=== PATIENT | male | born 1980 | race African-American/Black ===

== ENCOUNTER 2017-08-30 12:59 | Emergency (ER) | payer SELFPAY ==
[2017-08-30 13:02] VITALS: BMI 29.2
--- NOTE | 2017-08-30 13:23 | DR.EXTPAIN ---
HPI - Time seen Time seen: 17:35 - PCP Primary Care Physician: ABENA - HPI Comment HPI Comment: Patient reports that he has frequent dislocation of the shoulder. - Complaint/Symptoms Chief Complaint Doctor Comments: Patient with a history of dislocation of his shoulder, today complains of right shoulder pain and decreased abduction. Pain to movement. Chief Complaint:: PT. STATES HE FEELS LIKE HIS RIGHT SHOULDER IS OUT OF PLACE. PT. DENIES INJURY. PT. STATES HIS LEFT SHOULDER NORMALLY GETS DISPLACED. PT. UNABLE TO LIFT HIS RIGHT ARM WITHOUT PAIN. - Source History Provided: Patient - Mode of arrival Mode of Arrival: Ambulatory - Timing Onset of Chief Complaint: 08/28/17 PMH - PMH Past Medical History: No Past Surgical History: No Surgical History: No History - Family History History of Family Medical Conditions: No - Social History Does patient currently use any type of tobacco product: No Have you used tobacco products in the last 12 months: No Type of Tobacco Use: None Does any household member use tobacco: No Alcohol Use: None Do you use any recreational Drugs:: No Lives With: Family Lives Where: Home - infectious screening In the last 2 months have you had wt loss of >10#?: NO Have you had fever, night sweats or hemotysis?: No Have you traveled outside the country in the last 6 months?: No Isolation: Standard ROS - Review of Systems Eyes: No Symptoms Reported ENTM: No Symptoms Reported Respiratoy: No Symptoms Reported Cardiovascular: No Symptoms Reported Gastrointestinal/Abdominal: No Symptoms Reported Genitourinary: No Symptoms Reported Neurological: No Symptoms Reported Musculoskeletal: Joint Pain (right shoulder pain) Integumentary: No Symptoms Reported Hematologic/Lymphatic: No Symptoms Reported Endocrine: No Symptoms Reported Psychiatric: No Symptoms Reported All Other Systems: Reviewed and Negative PE - Vital Signs Vitals: Temperature 97.8 F Pulse Rate [Apical] 61 Pulse Rate 73 Respiratory Rate 20 Blood Pressure [Left Arm] 130/83 Blood Pressure 132/81 O2 Sat by Pulse Oximetry 100 Course - Treatment Treatment: Repeated shoulder x ray negative for dislocation ROR - XRAY XRAY Interpreted by: Radiologist (Right Shoulder ([id number]) Three views of the right shoulder demonstrate no evbidence of acute bony abnormality or significant degenerative bar. Incidental note is made of a 8mm linear radiopaque foreign body in the soft tissues projecting over the right axillary region. No acute bony abnormality or significant degenerative change iis seen on this exam. 1712: The appearance of the clavicle and AC joint are unremarkable. The glenohumeral articulation is normal in its appearance. No acute cortical disruption or dislocation can be identified. The visualized portions of the scapula are unremarkable. In addition, the visuaolized portions of the thorax appear normal. There is now a 4 mm radiopaque density projected over the right axilla for which clincial correlation with any retained foreign bodfy is recommended. Findings previously measured 8mmn.g Impression. Radiopaque density projected over the right axilla without acute fracture or dislocation) - Diagnosis Discharge Problem: Foreign body over right axilla - Discharge Plan Condition: Stable - Follow ups/Referrals Follow ups/Referrals: [facility],None [Primary Care Provider] - 3 days - Instructions
[2017-08-30] MEDS ORDERED: TORADOL 60 MG VIAL IM ONE (13:25)
[2017-08-30] MEDS ORDERED: TORADOL 60 MG VIAL ONE (14:14)
--- NOTE | 2017-08-30 15:21 | RAD ---
Exam: Right shoulder three views History: Right shoulder pain with decreased range of motion Comparison: None Findings: Three views of the right shoulder demonstrate no evidence of acute bony abnormality or sign ificant degenerative change. Incidental note is made of a in 8 mm linear radiopaque foreign body in t he soft tissues projecting over the right axillary region. Impression: No acute bony abnormality or significant degenerative change is seen on this exam. Reported By:
[2017-08-30] MEDS ORDERED: MORPHINE SULFATE INJ 4 MG IVP ONE (15:22)
[2017-08-30] MEDS ORDERED: MORPHINE SULFATE INJ 4 MG ONE (15:22)
[2017-08-30] MEDS ORDERED: DIPRIVAN VIAL 20 ML ONE (17:00)
[2017-08-30] MEDS ORDERED: NS 500 ML IV 500 ML IV ONE (17:03)
--- NOTE | 2017-08-30 17:57 | RAD ---
HISTORY: Postreduction right shoulder Study: Two views right shoulder Comparison: Earlier the same day Findings: The appearance of the clavicle and AC joint are unremarkable. The glenohumeral articulation is aleksandr l in its appearance. No acute cortical disruption or dislocation can be identified. The visualized portions of the scapula are unremarkable. In addition, the visualized portions of the thorax appear normal. There is now a 4 mm radiopaque density projected over the right axilla for which clinical cor relation with any retained foreign body is recommended. Findings previously measured 8 mm. IMPRESSION: Radiopaque density projected over the right axilla without acute fracture or dislocation. Reported By:
[2017-08-30 19:17] VITALS: BP 142/88
== END 2017-08-30 19:17 | disposition home or self-care (01) ==
LOC: ER 13:04
DX: S40.851A Superficial foreign body of right upper arm, initial encounter (principal); Y33.XXXA Other specified events, undetermined intent, initial encounter
CPT/HCPCS: 73030; 96365; 96372; 96374; 96375; 99282; 99284; A4222; J1885; J2270; J3490